=== PATIENT | female | born 1990 | race Caucasian/White ===

== ENCOUNTER 2024-01-04 20:15 | Emergency (ER) | payer BC, SELFPAY ==
[2024-01-04 20:22] VITALS: BP 112/69; PULSE 79; RESP 20; TEMP 36.8; O2SAT 97; BMI 21.1
== END 2024-01-04 21:27 | disposition left against medical advice (07) ==
LOC: ED 20:57
PROVIDERS: Emergency Provider Emergency Medicine Emergency Medical Services; PCP Family Medicine
DX: Z53.21 Procedure and treatment not carried out due to patient leaving prior to being seen by health care provider (principal)
CPT/HCPCS: 81001